=== PATIENT | female | born 1975 | race Caucasian/White ===

== ENCOUNTER 2022-03-07 18:50 | Emergency (ER) | payer OTHER, SELFPAY ==
[2022-03-07 18:52] VITALS: BP 121/72; PULSE 65; RESP 18; TEMP 36.7; O2SAT 99; BMI 21475.2
[2022-03-07 19:02] VITALS: BP 121/72; PULSE 65; O2SAT 100
--- NOTE | 2022-03-07 19:15 | ED_ITS ---
HPI - Allergic Reaction General Chief complaint: Allergic Reaction Stated complaint: HIVES ON BODY Time Seen by Provider: 03/07/22 19:06 Source: patient Mode of arrival: Ambulatory Limitations: no limitations History of Present Illness HPI narrative: 46-year-old female. Here for evaluation hives. She states that the symptoms started within the past 12 hours although she did start to feel somewhat itching and burning several hours prior to that. No new known exposures. She has been on a sail[place] off the coast of [facility] for the past several days. She is not used any lotions or shampoos or soaps that are new. No new medications. 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 She is on sirolimus for this. She denies any fevers. No problems breathing. No vomiting. Related Data Previous Rx's Medication Instructions Recorded prednisone 20 mg tablet 20 mg PO DAILY #30 tabs 03/07/22 Allergies Allergy/AdvReac Type Severity Reaction Status Date / Time No Known Drug Allergies Allergy Verified 03/07/22 19:15 Review of Systems Review of Systems ROS Unobtainable: All systems reviewed & are unremarkable except as noted in HPI and below Patient History Social History Smoking Status: Never smoker Smoking Status: Never smoker alcohol intake frequency: a few times a week Substance Use Type: does not use Exam Initial Vital Signs Initial Vital Signs: Vital Signs Temperature 98.1 F 03/07/22 18:52 Pulse Rate 65 03/07/22 18:52 Respiratory Rate 18 03/07/22 18:52 Blood Pressure 121/72 03/07/22 18:52 Pulse Oximetry 99 03/07/22 18:52 Oxygen Delivery Method 03/07/22 18:52 Const General: cooperative, comfortable, well developed, well groomed and No ill appearing HENMT Head: normal to inspection and normocephalic Mouth: moist mucous membranes Resp Effort & Inspection: normal respiratory effort Auscultation: clear to auscultation bilaterally Cardio Rate: regular rate Rhythm: regular rhythm GI Inspection: normal to inspection Skin Other: Patient with urticaria that is well-defined located mostly on the anterior upper aspects of her lower extremities, abdomen and upper arms. She also has lesions on her upper back. There are no blistering. No vesicles. No crusting. Neuro General: patient alert, patient awake, patient oriented x3 and moves all extremities Extrem General: normal to inspection and capillary refill normal Psych Appearance: grossly normal and well kempt Course Orders Ordered: Discontinued Medications Diphenhydramine HCl (Diphenhydramine 50 Mg/Ml Vial) 25 mg IV NOW ONE Stop: 03/07/22 19:12 Last Admin: 03/07/22 19:26 Dose: 25 mg Documented By: ALLEN Methylprednisolone (Methylprednisolone 125 Mg/2 Ml Vial) 125 mg IV NOW ONE Stop: 03/07/22 19:12 Last Admin: 03/07/22 19:26 Dose: 125 mg Documented By: ALLEN Vital Signs Vital signs: Vital Signs - 8 hr 03/07/22 18:52 03/07/22 19:02 03/07/22 19:02 Temperature 98.1 F Pulse Rate 65 65 Respiratory Rate 18 Blood Pressure 121/72 121/72 Pulse Oximetry 99 100 Oxygen Delivery Method Room Air 03/07/22 19:30 03/07/22 20:00 03/07/22 20:30 Temperature Pulse Rate 70 63 Respiratory Rate 17 17 Blood Pressure 136/66 Pulse Oximetry 98 100 Oxygen Delivery Method Room Air 03/07/22 20:30 Temperature Pulse Rate 62 Respiratory Rate 17 Blood Pressure Pulse Oximetry 99 Oxygen Delivery Method MDM - Allergic Reaction MDM Narrative Medical decision making narrative: Patient is obviously having a reaction with urticaria. Physical exam is not consistent anaphylaxis. Unsure the exact etiology. There is no new defined exposures. Afebrile. No respiratory distress. Exam is not consistent with, SJS, TEN, Lyme, Jesus mountain spotted fever, scalded skin. Patient was given Benadryl and steroids here in the ER with minimal improvement. Plan will be is to discharge her home on oral steroids. She has Benadryl at home. She does have Zyrtec at home. We discussed the use of topical creams. When she returns home she is going to contact her primary doctor. She was given strict return precautions. She expressed understanding and agreement. Discharge Plan Departure Patient Disposition: Home Clinical Impression: Urticaria Instructions: DI for Hives Activity Restrictions/Additional Instructions: Continue all of your medications as directed. Contact your primary doctor for follow-up. Use the steroids like we discussed. You can also use Benadryl 1-2 tablets every 4 hours as needed. Also take Zyrtec. You can also use the topical steroid/antihistamine cream like we discussed. Return to the emergency department for any new or worsening symptoms. Prescriptions: New prednisone 20 mg tablet 20 mg PO DAILY Qty: 30 0RF Rx Instructions: Take 2T PO QD for 5D then 1T PO QD for 5D then 1/2 T PO QD for 5D Visit Report Forms: Patient Portal/API
[2022-03-07] MEDS: diphenhydrAMINE 50 MG/ML VIAL 25 MG IV (19:26)
[2022-03-07] MEDS: methylPREDNISolone 125 MG/2 ML VIAL IV (19:26)
[2022-03-07 19:30] VITALS: PULSE 70; RESP 17; O2SAT 98
[2022-03-07 20:00] VITALS: PULSE 63; RESP 17; O2SAT 100
[2022-03-07 20:30] VITALS: BP 136/66; PULSE 62; RESP 17; O2SAT 99
== END 2022-03-07 20:37 | disposition home or self-care (01) ==
PROVIDERS: Emergency Provider Emergency Medicine
DX: L50.9 Urticaria, unspecified (principal)
CPT/HCPCS: 96374; 96375; 99283; J1200; J2930

== ENCOUNTER → 2025-01-02 10:47 | Outpatient (CLI) | payer OTHER, SELFPAY ==
[2025-01-02 11:50] LABS: Influenza A - CEPHEID Flu A NEGATIVE (NEGATIVE); Influenza B - CEPHEID Flu B NEGATIVE (NEGATIVE); Respiratory Syncytial Virus Negative (Negative)
[2025-01-02 11:53] LABS: COVID-19 CEPHEID 4-PLEX PCR Negative (Negative)
== END ==
PROVIDERS: Visit Provider Nurse Practitioner Family
DX: R05.1 Acute cough (principal); J02.9 Acute pharyngitis, unspecified
CPT/HCPCS: 0241U; 87070

== ENCOUNTER → 2025-01-02 11:09 | Outpatient (CLI) | payer OTHER, SELFPAY ==
--- NOTE | 2025-01-02 11:10 | DI.RAD.S_ITS ---
PROCEDURE: XR CHEST 2V INDICATIONS: Cough TECHNIQUE: 2 views of the chest were acquired. COMPARISON: None. FINDINGS: Surgical changes and devices: None. Lungs and pleura: Lungs are clear. No pleural effusions or pneumothorax. Mediastinum: Mediastinal contours are normal. Heart size is normal. Bones and chest wall: No suspicious bony abnormalities. Soft tissues appear unremarkable. IMPRESSION: No acute cardiopulmonary abnormality is seen. Dictated by: Bon Cabrera M.D. on 01/03/2025 at 2:18 Approved by: Bon Cabrera M.D. on 01/03/2025 at 2:20
== END ==
PROVIDERS: Referring Provider Nurse Practitioner Family; Visit Provider Nurse Practitioner Family
DX: R05.9 Cough, unspecified (principal)
CPT/HCPCS: 71046